=== PATIENT | female | born 1995 | race Caucasian/White ===

== ENCOUNTER 2017-11-17 11:23 | Emergency (ER) | payer MEDICAID ==
[~2017-11-17] VITALS: Ht 149.9 cm; Wt 50.0 kg
[2017-11-17 11:52] VITALS: BP 119/74
== END 2017-11-17 17:48 | disposition left against medical advice (07) ==
LOC: ER 14:09
DX: Z53.21 Procedure and treatment not carried out due to patient leaving prior to being seen by health care provider (principal)